=== PATIENT | male | born 1970 | race Caucasian/White ===

== ENCOUNTER 2016-06-04 12:50 | Emergency (ER) | payer OTHER ==
[2016-06-04 13:38] VITALS: BP 133/74
--- NOTE | 2016-06-04 14:07 | UC ---
Joselin Marrero Janilya, [facility] on 06/04/16 at 1352 . Back Pain HPI - HPI Summary HPI Summary: Nurse's note: LOWER MID-BACK PAIN TODAY; GRADUALLY GETTING WORSE SINCE YESTERDAY. HX OF CHRONIC BACK AND KNEE PAIN FOR 9 YEARS. NO TRAUMA. TODAY THE PAIN IS AN 8/10 PAIN. NON-RADIATING, CONSTANT THROBBING PAIN. FEELS LIKE SOMEONE PUNCHES HIM IF HE MOVES IN THE RIGHT WAY. HE IS UNFORTUNATELY, IN THE MIDDLE OF MOVING HIS HOUSEHOLD. note: Vital signs are normal. Pulse is 93. Pulse Ox is 100. Pt is afebrile. 8 /10 pain. Heavy everyday smoker, non-drinker. PMHx COPD, hernia repair, GERD. HPI: A 46 y/o male came in to [facility] presenting w/ a gradual onset of constant low back pain starting today 0800. Pt is in the process of moving his house. Pt states his knees have a tendency of giving out. So when he was moving boxes this morning, his knees gave out. Consequently, he injured his back. Leaning to the sides or straightening up makes the pain worse. Pt also reports cough, for which he had endoscopy 8 months ago. He states he has an itch in the back of the throat that resolves on its own for 7-8 days. - History of Current Complaint Chief Complaint: UCBackPain Stated Complaint: BACK PAIN Time Seen by Provider: 06/04/16 13:41 Hx Obtained From: Patient Onset/Duration: Gradual Onset, Lasting Days, Still Present Timing: Constant, Lasting Days Severity Initially: Moderate Severity Currently: Moderate Aggravating: Nothing Alleviating: Nothing - Allergies/Home Medications Allergies/Adverse Reactions: Allergies Allergy/AdvReac Type Severity Reaction Status Date / Time Doxycycline Allergy Mild Rash Verified 06/04/16 13:31 PMH/Surg Hx/FS Hx/Imm Hx Previously Healthy: Yes Endocrine History Of: Denies: Diabetes, Thyroid Disease Cardiovascular History Of: Denies: Cardiac Disorders, Hypertension, Pacemaker/ICD Respiratory History Of: Reports: COPD Denies: Asthma GI/ History Of: Denies: Ulcer - Surgical History Surgical History: Yes Surgery Procedure, Year, and Place: hernia repair x 5;. Appendix age 14 - Family History Known Family History: Positive: Diabetes, Other - cancer - Social History Occupation: Unemployed Alcohol Use: None Substance Use Type: None Smoking Status (MU): Heavy Every Day Tobacco Smoker Amount Used/How Often: 1 PPD, 37+ YEARS Review of Systems Constitutional: Negative Skin: Negative Eyes: Negative ENT: Negative Respiratory: Negative Cardiovascular: Negative Gastrointestinal: Negative Genitourinary: Negative Motor: Negative Neurovascular: Negative Musculoskeletal: Arthralgia - back pain, Myalgia - back pain Neurological: Negative Psychological: Negative All Other Systems Reviewed And Are Negative: Yes Physical Exam Triage Information Reviewed: Yes Appearance: Well-Appearing, No Pain Distress, Well-Nourished Vital Signs: Initial Vital Signs Temp 98.3 F 06/04/16 13:33 Pulse 93 06/04/16 13:33 Resp 16 06/04/16 13:33 BP 133/74 06/04/16 13:33 Pulse Ox 100 06/04/16 13:33 Vital Signs Reviewed: Yes Eyes: Positive: Conjunctiva Clear ENT: Positive: Hearing grossly normal, Pharynx normal, TMs normal. Negative: Muffled/hoarse voice Neck: Positive: Supple, Nontender Respiratory: Positive: Chest non-tender, Rhonchi - SCATTERED RHONCHI Cardiovascular: Positive: RRR, No Murmur Abdomen Description: Positive: Nontender, No Organomegaly, Soft Bowel Sounds: Positive: Present Musculoskeletal: Positive: Other: - NO POINT TENDERNESS IN LUMBAR REGION. DISCOMFORT WITH EXTENSION AND TWISTING. NO DISTAL CIRCULATORY MOTOR OR SENSORY DEFICIT, ALTHOUGH THE PT WALKS SLOWLY AND BENT OVER SECONDARY TO PAIN. Neurological: Positive: Alert Psychological: Positive: Age Appropriate Behavior Skin: Negative: rashes Back Pain Course/Dx - Course Course Of Treatment: Pt already uses Neproxin. I will prescribe Flexeril ( muscle relaxent) and Vicodin (narcotic). I warned the side effects of using these simultaneously. [facility] S[facility] [id number] no recent opiate prescriptions. I also recommended hot showers and icing. The hot and cold contrast will help with numbing the pain. - Differential Dx/Diagnosis Differential Diagnosis/HQI/PQRI: Strain, Other - nerve related injury Provider Diagnoses: Lumbar muscle strain Discharge - Discharge Plan Condition: Stable Disposition: HOME Prescriptions: Cyclobenzaprine TAB* [Flexeril TAB*] 10 mg PO BID #7 tab MDD 2 HYDROcodone/ACETAMIN 5-325 MG* [[place] 5-325 TAB*] 1 tab PO Q6H #9 tab MDD 4 Patient Education Materials: Low Back Strain (ED) Referrals: Sylvia Perrin MD [Primary Care Provider] - Additional Instructions: WE DISCUSSED: YOU INJURED MUSCLES IN YOUR LOWER BACK. THERE IS NO EVIDENCE OF NERVE INJURY. TREATMENT: VICODIN AT NIGHT NAPROXIN DURING THE DAY FLEXERIL FOR MUSCLE SPASM Warm, moist heat to area in the morning when you wake up. ICE MASSAGE: When experiencing low back spasms, you can ice-massage every hour. Freeze water in a paper or styrofoam cup. Peel one or two inches off the top of the cup. The ice goes directly against the skin. You use the remainder of the cup for a handle. Lie on your stomach with a pillow under your pelvis and have someone give you the ice massage. You may also lie on your side with a pillow in between your legs. Gently massage a four inch by six inch area on one side of your spine, but not directly on the bone. Ice the area where you think the pain starts. Do this for five to seven minutes. At first the ice will feel very cold and then it will burn. Do not do any longer than seven minutes; you do not want to get frostbite. Follow up for any increased pain, temperature or disability. CONTRAST BATHS: Contrast baths have been recommended. These treatments decrease swelling and pain, and increase mobility in the area of injury. Contrast treatments are usually done two to four times daily. First soak the injury in warm water for about 20 minutes. After a few minutes in the warm water, begin to gently move the joints to restore the range of motion to normal. Do not push beyond the point of discomfort. (Your doctor will advise you of any other precautions.) Next soak the injury in cold water (or ice) for 20 minutes. Allow it to rest while in the cold water. The documentation as recorded by the Joselin joshi Janilya accurately reflects the service I personally performed and the decisions made by me, Shawn Mcginnis MD.
== END 2016-06-04 14:18 | disposition home or self-care (01) ==
LOC: UCEAST 12:50
DX: S39.012A Strain of muscle, fascia and tendon of lower back, initial encounter (principal); X58.XXXA Exposure to other specified factors, initial encounter; Y93.9 Activity, unspecified; Y92.9 Unspecified place or not applicable; Z88.1 Allergy status to other antibiotic agents; F17.210 Nicotine dependence, cigarettes, uncomplicated
CPT/HCPCS: 99212; G0463

== ENCOUNTER → 2016-12-04 15:00 | Emergency (ER) | payer OTHER ==
[~2016-12-04 15:00] MED LIST: Lidocaine 1% INJ* 10 MG/ML 30 ML SDV ONE; Tetan/Diph/Pertus SYR(Tdap)* 0.5 ML SYR(BOOSTRIX) use SYR IM ONE
[2016-12-04 15:11] VITALS: BP 110/69
--- NOTE | 2016-12-04 15:59 | ED ---
Laceration/Wound HPI - HPI Summary HPI Summary: 46M presents with left ring finger laceration. He cut it on a piece of glass. unsure if there is glass in the wound. He denies any numbness or tingling. He has full ROM of his finger. He does not know when his last tetanus was. - History of Current Complaint Stated Complaint: FINGER LACERATION Time Seen by Provider: 12/04/16 15:32 Pain Intensity: 1 - Allergy/Home Medications Allergies/Adverse Reactions: Allergies Allergy/AdvReac Type Severity Reaction Status Date / Time Doxycycline Allergy Mild Rash Verified 06/04/16 13:31 PMH/Surg Hx/FS Hx/Imm Hx Endocrine/Hematology History: Denies: Hx Diabetes, Hx Thyroid Disease Cardiovascular History: Denies: Hx Hypertension, Hx Pacemaker/ICD Respiratory History: Reports: Hx Chronic Obstructive Pulmonary Disease (COPD) Denies: Hx Asthma GI History: Reports: Other GI Disorders - gerd Denies: Hx Ulcer History: Reports: Other Problems/Disorders - enlarged prostate Sensory History: Denies: Hx Hearing Aid Psychiatric History: Denies: Hx Panic Disorder - Surgical History Surgery Procedure, Year, and Place: hernia repair x 5;. Appendix age 14 Infectious Disease History: No Infectious Disease History: Denies: Hx Clostridium Difficile, Hx Hepatitis, Hx Human Immunodeficiency Virus (HIV), Hx of Known/Suspected MRSA, Hx Shingles, Hx Tuberculosis, Hx Known/ Suspected VRE, Hx Known/Suspected VRSA, History Other Infectious Disease, Traveled Outside the [place] in Last 30 Days - Family History Known Family History: Positive: Diabetes, Other - cancer - Social History Alcohol Use: None Substance Use Type: Reports: None Smoking Status (MU): Heavy Every Day Tobacco Smoker Amount Used/How Often: 1 PPD, 37+ YEARS Review of Systems Negative: Fever Negative: Chest Pain Negative: Shortness Of Breath Positive: Other - laceration left ring finger All Other Systems Reviewed And Are Negative: Yes Physical Exam Triage Information Reviewed: Yes Vital Signs On Initial Exam: Initial Vitals Temp Pulse Resp BP Pulse Ox 98.3 F 73 20 107/65 98 12/04/16 15:01 12/04/16 15:01 12/04/16 15:01 12/04/16 15:01 12/04/16 15:01 Vital Signs Reviewed: Yes Appearance: Positive: Well-Appearing Skin: Positive: Other - 2cm laceration of palmar aspect of DIP of left ring finger Head/Face: Positive: Normal Head/Face Inspection Eyes: Positive: Normal, Conjunctiva Clear Respiratory/Lung Sounds: Positive: Clear to Auscultation, Breath Sounds Present Cardiovascular: Positive: Normal, RRR Musculoskeletal: Positive: Strength/ROM Intact - left ring finger, Other - good pulses, capillary refill<2 secs Procedures - Splinting Location: finger Pre-Made Type: metal Pre-Proc Neuro Vasc Exam: normal - Laceration/Wound Repair 1 Location: Other - left index Description: Irregular Anesthesia: Digital, 1.0% Length, Depth and Shape: 2cm superficial Betadine Prep?: Yes Irrigated w/ Saline (ccs): 200 Laceration/Wound Explored: clean, no foreign body removed Closure: Single Layer Suture Type: Prolene - 4-0 Number of Sutures: 3 Diagnostics - Vital Signs Vital Signs Temp Pulse Resp BP Pulse Ox 12/04/16 15:08 98.3 F 75 16 110/69 100 12/04/16 15:01 98.3 F 73 20 107/65 98 - Laboratory Lab Statement: Any lab studies that have been ordered have been reviewed, and results considered in the medical decision making process. Laceration Repair Course/Dx - Course Course Of Treatment: 46M presents with left ring finger laceration. He cut it on a piece of glass. unsure if there is glass in the wound. He denies any numbness or tingling. He has full ROM of his finger. He does not know when his last tetanus was. placed 3 sutures in wound and placed in finger splint. no foreign body on xray or in wound. patient understands and agrees with plan. - Differential Dx Differental Diagnoses: Abrasion, Avulsion, Foreign Body, Laceration - Clinical Impression Provider Diagnoses: Laceration of left index finger Discharge - Discharge Plan Condition: Good Disposition: HOME Patient Education Materials: Care For Your Stitches (ED) Referrals: Sylvia Perrin MD [Primary Care Provider] - Additional Instructions: change dressing once a day Keep area clean and dry Take Tylenol or ibuprofen for pain every 6 hours Return to ED or primary for suture removal in 10-14 days Return to ED if develop signs of infection such as fever, spreading redness, or pus formation
--- NOTE | 2016-12-04 16:07 | RAD ---
Indication: Laceration to the distal LEFT fourth finger. Glass from broken window. Comparison: No relevant prior exams available on the [facility] PACS for comparison. Technique: 3 views LEFT fourth finger. REPORT AND IMPRESSION: Mild nonfocal soft tissue swelling. No subcutaneous emphysema or conspicuous foreign body. Negative for fracture or malalignment. Preserved joint spaces.
== END | disposition home or self-care (01) ==
LOC: ED 15:00
DX: S61.211A Laceration without foreign body of left index finger without damage to nail, initial encounter (principal); W25.XXXA Contact with sharp glass, initial encounter; Y93.9 Activity, unspecified; Y92.89 Other specified places as the place of occurrence of the external cause; F17.210 Nicotine dependence, cigarettes, uncomplicated
CPT/HCPCS: 73140; 90471; 99282; J2001